=== PATIENT | male | born 1960 ===

== ENCOUNTER 2018-11-07 10:00 | Outpatient (CLI) | payer SELFPAY ==
[2018-11-07 11:08] LABS: HEMOGLOBIN A1C 5.7 % (4.5-6.2)
[2018-11-07 11:19] LABS: CHOL/HDL RATIO 3.41 (0.00-4.99)
== END 2018-11-07 23:59 | disposition home or self-care (01) ==
LOC: HW HEART 10:00
DX: Z13.6 Encounter for screening for cardiovascular disorders (principal)
CPT/HCPCS: 36415